=== PATIENT | male | born 1985 | race Caucasian/White ===

== ENCOUNTER 2018-07-31 09:49 | Emergency (ER) | payer SELFPAY ==
[2018-07-31 10:03] VITALS: BP 144/95
--- NOTE | 2018-07-31 10:57 | UC ---
Laceration HPI - HPI Summary HPI Summary: today used box annealer and accidentally cut R thumb. Is R handed, needs tetanus. Has some pain and bleeding. - History Of Current Complaint Chief Complaint: UCLaceration Stated Complaint: THUMB LACERATION Time Seen by Provider: 07/31/18 10:52 Hx Obtained From: Patient Laceration Location: Finger - L thumb lac, box cu Mechanism Of Injury: Sharp Trauma Onset/Duration: Sudden Onset Severity: Mild Pain Intensity: 0 Pain Scale Used: 0-10 Numeric Aggravating Factors: Nothing Hands: 1 - laceration , some bleeding approx 40cm Related History: Occupational Injury - Allergies/Home Medications Allergies/Adverse Reactions: Allergies Allergy/AdvReac Type Severity Reaction Status Date / Time No Known Allergies Allergy Verified 07/31/18 10:03 Home Medications: Home Medications NK [No Home Medications Reported] 07/31/18 [History Confirmed 07/31/18] PMH/Surg Hx/FS Hx/Imm Hx Previously Healthy: Yes - Surgical History Surgical History: None - Social History Alcohol Use: Occasionally Substance Use Type: None Smoking Status (MU): Heavy Every Day Tobacco Smoker Review of Systems All Other Systems Reviewed And Are Negative: Yes Constitutional: Positive: Negative Skin: Positive: Other - laceration on r thumb Musculoskeletal: Positive: Negative Is Patient Immunocompromised?: No Physical Exam Triage Information Reviewed: Yes Appearance: Well-Appearing, No Pain Distress Vital Signs: Initial Vital Signs Temp 98.4 F 07/31/18 09:56 Pulse 89 07/31/18 09:56 Resp 17 07/31/18 09:56 BP 144/95 07/31/18 09:56 Pulse Ox 99 07/31/18 09:56 Vital Signs Reviewed: Yes Musculoskeletal Exam: Normal - r thumb joint has no swollen areas, has minimal bleeding Psychological: Positive: Age Appropriate Behavior Skin: Positive: Other - laceration on R thumb: approx 40cm Laceration Repair - Laceration Repair 5 Description: Linear Laceration Size After Repair: Length (cm) - approx 40cm Type Injection: Local Cleansing Completed Via Routine Prep: Yes Closure Material: Sutures Closure Method: Single Layer Suture Of: SQ Suture Type: Nylon Laceration Course/Dx - Course/Dx Course Of Treatment: repaired laceration, minimal bleeding. cleaned and dressed wound. - Differential Dx - Laceration/Wound Differental Diagnoses: Abrasion, Laceration Provider Diagnoses: laceration, repair. Discharge - Sign-Out/Discharge Documenting (check all that apply): Patient Departure All imaging exams completed and their final reports reviewed: No Studies - Discharge Plan Condition: Good Disposition: HOME Patient Education Materials: Laceration Without Closure (ED) Referrals: No Primary Care Phys,NOPCP [Primary Care Provider] - [facility] [Outside] Additional Instructions: keep area clean. you will need these removed in 7-10 days - Billing Disposition and Condition Condition: GOOD Disposition: Home
[2018-07-31] MEDS ORDERED: Lidocaine 1% INJ* 10 MG/ML 30 ML SDV INJ ONE (11:09)
[2018-07-31] MEDS ORDERED: Tetan/Diph/Pertus SYR(Tdap)* 0.5 ML SYR(BOOSTRIX) use SYR IM ONE (11:10)
[2018-07-31] MEDS ORDERED: Lidocaine 1%* 5 ML VIAL INJ ONE (11:22)
== END 2018-07-31 12:20 | disposition home or self-care (01) ==
LOC: UCEAST 09:49
DX: S61.011A Laceration without foreign body of right thumb without damage to nail, initial encounter (principal); F17.200 Nicotine dependence, unspecified, uncomplicated; W45.8XXA Other foreign body or object entering through skin, initial encounter; Y92.9 Unspecified place or not applicable
CPT/HCPCS: 12002; 90471; 90715; 99201; G0463